=== PATIENT | male | born 1995 | race Caucasian/White ===

== ENCOUNTER 2020-10-18 23:21 | Emergency (ER) | payer OTHER ==
[2020-10-18 23:40] VITALS: BP 121/85; PULSE 110; TEMP 98.8; BMI 25.8
[2020-10-18] MEDS ORDERED: SODIUM CHLORIDE 0.9% 500 ML INFUS.BAG IV ONE (23:43)
[2020-10-19] MEDS ORDERED: MAG HYDROX/AL HYDROX/SIMETH 30 ML UNIT-DOSE CUP PO ONE (00:57)
[2020-10-19] MEDS ORDERED: MAG HYDROX/AL HYDROX/SIMETH 30 ML UNIT-DOSE CUP ONE (00:59)
[2020-10-19] MEDS ORDERED: ONDANSETRON *ODT* 4 MG TABLET ONE (01:04)
[2020-10-19] MEDS ORDERED: ONDANSETRON *ODT* 4 MG TABLET SL ONE (01:05)
== END 2020-10-19 03:26 | disposition home or self-care (01) ==
LOC: JER 23:21
DX: F19.10 Other psychoactive substance abuse, uncomplicated (principal)
CPT/HCPCS: 99284-25; Q0162

== ENCOUNTER 2022-11-13 17:05 | Emergency (ER) | payer OTHER ==
[2022-11-13] MEDS ORDERED: methylPREDNISolone NA SUCC 125 MG/2 ML VIAL IVPUSH ONE (17:11)
[2022-11-13] MEDS ORDERED: methylPREDNISolone NA SUCC 125 MG/2 ML VIAL ONE (17:12)
[2022-11-13] MEDS ORDERED: MAGNESIUM SULFATE IN WATER 2 GM/50 ML IVPB IVPB ONE (17:13)
[2022-11-13 17:28] VITALS: BP 121/76; RESP 28; TEMP 98.1; BMI 19.8
[2022-11-13] MEDS: ALBUTEROL SO4 2.5/IPRATROPIUM 0.5 INH SOL 3 ML VIAL.NEB. NEB SCH ×3 (17:29→18:09)
[2022-11-13 17:30] LABS: VENOUS BASE EXCESS 1.4 mmol/L (-2-2); VENOUS O2 SATURATION 33.9 % (70-80); VENOUS PCO2 52.6 mmHg (38-52); VENOUS PH 7.348 (7.310-7.410)
[2022-11-13 17:37] LABS: BASO % 1.1 % (0-2.0); EOS % 8.6 % (0-4.5); HEMATOCRIT 43.1 % (35.4-49); HEMOGLOBIN 14.8 GM/dL (11.7-16.9); LYMPH % 37.5 % (8-40); MCH 29.3 pg (25.7-33.7); MCHC 34.3 g/dl (32.0-35.9); MEAN CELL VOLUME 85.3 fl (80-96); MONO % 9.4 % (3.8-10.2); NEUT % 43.4 % (42.8-82.8); PLATELET COUNT 342 10^3/uL (134-434); RBC 5.05 M/mm3 (4.00-5.60); RDW 12.8 % (11.9-15.9); WHITE BLOOD COUNT 9.3 K/mm3 (4.0-10.0)
[2022-11-13] MEDS ORDERED: ALBUTEROL SO4 0.083% IH SOL 2.5 MG/3 ML VIAL.NEB. NEB ONE ×2 (17:44→17:46)
[2022-11-13 17:45] LABS: INR 1.07 (0.83-1.09); PROTHROMBIN TIME (PATIENT) 12.4 SEC (9.7-13.0)
[2022-11-13 17:47] LABS: ACTIVATED PTT 46.7 SECONDS (25.2-36.5)
[2022-11-13 18:18] LABS: POTASSIUM 3.9 mmol/L (3.5-5.1)
[2022-11-13 18:20] LABS: CALCIUM 10.1 mg/dL (8.5-10.1)
[2022-11-13 18:21] LABS: ALBUMIN 4.6 g/dl (3.4-5.0); BLOOD UREA NITROGEN 16.9 mg/dL (7-18); MAGNESIUM 2.4 mg/dL (1.8-2.4)
[2022-11-13 18:24] LABS: CREATININE 1.2 mg/dL (0.55-1.3)
[2022-11-13 18:25] LABS: BILIRUBIN,TOTAL 0.5 mg/dL (0.2-1); TOT PROT 8.4 g/dl (6.4-8.2)
[2022-11-13] MEDS ORDERED: SODIUM CHLORIDE 0.9% 500 ML INFUS.BAG IV ONE (18:27)
[2022-11-13 19:50] VITALS: PULSE 84
== END 2022-11-13 19:51 | disposition home or self-care (01) ==
LOC: JER 17:05
PROC: 3E033NZ Introduction of Analgesics, Hypnotics, Sedatives into Peripheral Vein, Percutaneous Approach (ICD-10-PCS; principal; 2022-11-13)
PROC: 3E033GC Introduction of Other Therapeutic Substance into Peripheral Vein, Percutaneous Approach (ICD-10-PCS; 2022-11-13)
PROC: 3E0F7GC Introduction of Other Therapeutic Substance into Respiratory Tract, Via Natural or Artificial Opening (ICD-10-PCS; 2022-11-13)
DX: J45.901 Unspecified asthma with (acute) exacerbation (principal); R06.02 Shortness of breath; R07.89 Other chest pain; Z20.822 Contact with and (suspected) exposure to COVID-19
CPT/HCPCS: 0241U-QW; 36415; 71046-TC-FY; 80053; 82803; 83735; 85025; 85610; 85730; 99284-25

== ENCOUNTER 2023-01-25 23:42 | Emergency (ER) | payer OTHER ==
[2023-01-25 23:51] VITALS: BP 101/68; PULSE 88; RESP 20; TEMP 98.9; BMI 21.1
[2023-01-26 00:53] LABS: METHADONE, UR NEGATIVE (NEGATIVE); OPIATES, URI NEGATIVE (NEGATIVE)
[2023-01-26 00:54] LABS: PHENCYCLIDINE,URINE NEGATIVE (NEGATIVE); URINE BARBITURATES NEGATIVE (NEGATIVE)
[2023-01-26 00:56] LABS: COCAINE, UR NEGATIVE (NEGATIVE); URINE AMPHETAMINES NEGATIVE (NEGATIVE); URINE BENZODIAZEPINES NEGATIVE (NEGATIVE)
== END 2023-01-26 00:48 | disposition home or self-care (01) ==
LOC: JER 23:42
DX: Z02.83 Encounter for blood-alcohol and blood-drug test (principal)
CPT/HCPCS: 80307; 99283-25

== ENCOUNTER 2024-04-15 05:45 | Emergency (ER) | payer OTHER ==
[2024-04-15 05:49] VITALS: BP 146/91; PULSE 91; RESP 18; TEMP 98.1; BMI 21.7
[2024-04-15] MEDS ORDERED: ALBUTEROL SO4 2.5/IPRATROPIUM 0.5 INH SOL 3 ML VIAL.NEB. NEB ONE ×3 (05:57→06:31)
[2024-04-15] MEDS ORDERED: predniSONE 20 MG TABLET (UD) ONE (05:57)
[2024-04-15] MEDS: ALBUTEROL SO4 2.5/IPRATROPIUM 0.5 INH SOL 3 ML VIAL.NEB. NEB ONE (06:03)
[2024-04-15] MEDS: predniSONE 20 MG TABLET (UD) PO ONE (06:03)
== END 2024-04-15 06:44 | disposition left against medical advice (07) ==
LOC: JER 05:45
PROC: 3E0F7GC Introduction of Other Therapeutic Substance into Respiratory Tract, Via Natural or Artificial Opening (ICD-10-PCS; principal; 2024-04-15)
DX: J45.998 Other asthma (principal)
CPT/HCPCS: 94640; 99283-25